=== PATIENT | male | born 1970 | race Caucasian/White ===

== ENCOUNTER 2017-06-14 08:51 | Emergency (ER) | payer SELFPAY ==
[~2017-06-14] VITALS: Ht 175.3 cm; Wt 100.2 kg
[2017-06-14 08:56] VITALS: Ht 175.3 cm; Wt 100.2 kg
[2017-06-14 09:43] LABS: CALCIUM 8.3 mg/dL (8.5-10.1); CHLORIDE SERUM 102 mmol/L (98-107); CREATININE SERUM 1.1 mg/dL (0.7-1.3); GFR1 > 60 mL/min; GLUCOSE SERUM 155 mg/dL (74-106); PLATELET COUNT 172 x10^3mcL (130-400); POTASSIUM SERUM 3.6 mmol/L (3.5-5.1); RED CELL DISTRIBUTION WIDTH 13.1 % (11.5-14.5); SODIUM SERUM 134 mmol/L (136-145)
[2017-06-14 09:46] LABS: BASOPHIL % 0 % (0-2)
[2017-06-14 09:48] VITALS: BP 119/77
[2017-06-14 09:49] LABS: ALBUMIN 3.3 g/dL (3.4-5.0); ALKALINE PHOSPHATASE 85 U/L (46-116); ALT/SGPT 77 U/L (16-63); AST/SGOT 156 U/L (15-37); BILIRUBIN TOTAL 2.3 mg/dL (0.20-1.00); TOTAL PROTEIN, SERUM 7.1 g/dL (6.4-8.2)
== END 2017-06-14 09:49 | disposition short-term general hospital (02) ==
LOC: ED 08:51
PROVIDERS: Emergency Medicine
DX: I21.9 Acute myocardial infarction, unspecified (principal)
CPT/HCPCS: 36415; 83880; Q0092